=== PATIENT | female | born 1955 | race Caucasian/White ===

== ENCOUNTER → 2016-09-19 | Outpatient (CLI) | payer MEDICARE, OTHER ==
[~2016-09-19] MED LIST: AMARYL PO; AMBIEN PO; B/P MED PO; CALTRATE PLUS T1 TAB PO; CYMBALTA PO; DIAZEPAM PO; EFFEXOR XR150 MG; FEMARA2.5 MG PO; FLEXERIL10 M1 PO; INVOKANA100 MG; K-DUR10 MEQ; KETOPROFEN PO; KLONOPIN PO; ONGLYZA5 MG; PREVACID PO; PROZAC PO; REQUIP1 MG PO; TRADJENTA5 MG; TYLENOL ARTHRITIS PO; VOLTAREN50 MG PO; ZOCOR PO
[2016-09-19 14:08] LABS: ALBUMIN SERUM 3.9 g/dL (3.5-5.0); BILIRUBIN,TOTAL 0.7 mg/dL (0.2-2.0); BUN/CREATININE RATIO 14.28; CALCIUM SERUM 8.5 mg/dL (8.4-10.2); CREATININE SERUM 0.7 mg/dL (0.6-1.4); GLOM FILT RATE Estimated 93.5 mL/min (>60); POTASSIUM 3.7 mmol/L (3.5-5.1)
[2016-09-21 00:04] LABS: MICROALB UR (PNL) 1.2 mg/dL (***)
== END | disposition home or self-care (01) ==
LOC: SLAB 13:21
PROVIDERS: Internal Medicine Endocrinology, Diabetes & Metabolism
DX: E11.65 Type 2 diabetes mellitus with hyperglycemia (principal); E04.2 Nontoxic multinodular goiter
CPT/HCPCS: 36415; 80053; 80061; 82043; 82570; 83036

== ENCOUNTER → 2016-10-30 | Outpatient (CLI) | payer MEDICARE, OTHER ==
--- NOTE | ~2016-10-30 | MY30 ---
[facility] A Service of [facility] & [facility] RADIOLOGY TEXT RESULTS PATIENT: ROBERTO MUNIZ LOCATION: [facility] : 55 UNIT #: [id number] AGE: [address]: Hailey Billings MD SEX: F ORDER DR: [id number] [address] [id number] O MR#: [id number] Acc #: [id number] NAME: ROBERTO MUNIZ : 1955 SEX: F STUDY DATE/TIME: 10/30/2016 13:33 UNIT: [facility] ROOM: STUDY DESCRIPTION: MY SCREEN JUSTICE BILAT DIGITAL Attending Physician: Hailey Billings M.D. Referring Physician: Hailey Billings M.D. Ordering Physician: Hailey Billings M.D. Primary Care Physician: Hailey Billings M.D. MEDICAL IMAGING REPORT This report is preliminary unless electronic signature is present. EXAM Bilateral digital screening mammogram with CAD, 10/30/2016 HISTORY 61-year-old female with personal history of right breast cancer with mastectomy and reconstruction. No current complaints. COMPARISON Bilateral screening mammogram 07/31/2014 and 07/21/2013. FINDINGS CC and MLO views were obtained of each breast without and with implant displacement technique. Study was reviewed with an FDA-approved CAD device. Scattered fibroglandular densities are present. Fibronodular density in the lateral hemisphere left breast posterior hemisphere on the CC implant displaced view is unchanged since 2013, and is in keeping with benign finding. Patient has undergone right mastectomy with reconstruction. Benign appearing heterotopic calcification in the lateral right breast appears unchanged. Surgical clips are seen within the right axilla. Subglandular saline implants appear stable in position and contour. IMPRESSION Right mastectomy with reconstruction. Bilateral implants stable in position. No new or suspicious findings, and no evidence of malignancy. Routine bilateral screening mammogram recommended in one year. Patients over the age of 40 are entered into a reminder system with target due date for the next mammogram. A result letter will also be sent to the patient. STS. [facility] A Service of [facility] & [facility] RADIOLOGY TEXT RESULTS PATIENT: ROBERTO MUNIZ LOCATION: [facility] : 55 UNIT #: [id number] AGE: [address]: Hailey Billings MD SEX: F ORDER DR: Idris Benign Findings Dictated by... Jillian Villarreal M.D. THIS IS AN ELECTRONICALLY VERIFIED REPORT Jillian Villarreal M.D. at 10/31/2016 9:50 AM Ashwini TD: 10/31/2016 08:09 JOB #: [id number] MEDICAL IMAGING REPORT Page 1 of 1
== END | disposition home or self-care (01) ==
LOC: SMAM 13:00
DX: Z12.31 Encounter for screening mammogram for malignant neoplasm of breast (principal); Z85.3 Personal history of malignant neoplasm of breast; Z90.11 Acquired absence of right breast and nipple
CPT/HCPCS: G0202